=== PATIENT | male | born 1950 | race Caucasian/White ===

== ENCOUNTER 2021-09-02 09:03 | Emergency (ER) | payer OTHER ==
[~2021-09-02] VITALS: Ht 180.3 cm; Wt 83.9 kg
[2021-09-02] MEDS ORDERED: MOTRIN IB200 MG PO (09:27)
[2021-09-02] MEDS ORDERED: CINNAMON BARK1 GM MISC (09:27)
[2021-09-02] MEDS ORDERED: DAILY VALUE1 EACH PO (09:27)
[2021-09-02] MEDS ORDERED: ASPIRIN EC325 MG PO (09:28)
[2021-09-02] MEDS ORDERED: METFORMIN HCL500 MG PO (13:06)
== END 2021-09-02 13:21 | disposition home or self-care (01) ==
LOC: ED 09:03
DX: E11.9 Type 2 diabetes mellitus without complications (principal); I25.2 Old myocardial infarction; Z85.841 Personal history of malignant neoplasm of brain; Z79.899 Other long term (current) drug therapy; Z79.82 Long term (current) use of aspirin
CPT/HCPCS: 70470; 71260; 74177; 80053; 81001; 83690; 83735; 85025; 99284-25; J7030; Q9967

== ENCOUNTER 2021-09-17 08:12 | Emergency (ER) | payer MEDICARE ==
[~2021-09-17] VITALS: Ht 180.3 cm; Wt 75.8 kg
[~2021-09-17 08:12] MED LIST: ASPIRIN EC325 MG PO; CINNAMON BARK1 GM MISC; DAILY VALUE1 EACH PO; METFORMIN HCL500 MG PO; MOTRIN IB200 MG PO
--- OUTSIDE RECORDS SUMMARY | 2021-09-17 08:20 | XMS ---
PreManage Notification: MATI MENDEZ Security Rfp Writer Events No recent Security Events currently on file CRITERIA MET - [facility] - 2 Visits in 30 Days CARE PROVIDERS There are no care providers on record at this time. Sophia has no Care Guidelines for this patient. [facility] NOTE: Visits indicate total known visits. ED/C VISIT TRACKING (12 MO.) 09/17/2021 08:[address] 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
[2021-09-17] MEDS ORDERED: ATIVAN1 MG PO (08:47)
== END 2021-09-17 09:06 | disposition home or self-care (01) ==
LOC: ED 08:12
DX: F13.239 Sedative, hypnotic or anxiolytic dependence with withdrawal, unspecified (principal); Z76.0 Encounter for issue of repeat prescription; E11.9 Type 2 diabetes mellitus without complications; I25.2 Old myocardial infarction; Z85.841 Personal history of malignant neoplasm of brain; Z79.899 Other long term (current) drug therapy; Z79.84 Long term (current) use of oral hypoglycemic drugs; Z79.82 Long term (current) use of aspirin
CPT/HCPCS: 99281

== ENCOUNTER 2021-09-30 08:37 | Emergency (ER) | payer MEDICARE ==
[~2021-09-30] VITALS: Ht 180.3 cm; Wt 75.8 kg
[~2021-09-30 08:37] MED LIST changes: +ATIVAN1 MG PO
--- OUTSIDE RECORDS SUMMARY | 2021-09-30 08:46 | XMS ---
PreManage Notification: MATI MENDEZ Security Manager Military Events No recent Security Events currently on file CRITERIA MET - [facility] - 2 Visits in 30 Days CARE PROVIDERS There are no care providers on record at this time. Sophia has no Care Guidelines for this patient. [facility] MO[facility] T[facility] NOTE: Visits indicate total known visits. ED/C VISIT TRACKING (12 MO.) 09/30/2021 08:38 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 - group home (current) use of oral hypoglycemic drugs - Personal history of malignant neoplasm of brain - Other care home (current) drug therapy - Sedative, hypnotic or anxiolytic dependence with withdrawal, unspecified - Old myocardial infarction - Encounter for issue of repeat prescription 09/02/2021 09:04 [facility] [place] TYPE: Emergency COMPLAINT: - DIABETIC PROBLEM DIAGNOSES: - Hyperglycemia, unspecified - termite inspector (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
[2021-09-30] MEDS ORDERED: ATIVAN1 MG PO (09:14)
== END 2021-09-30 09:29 | disposition home or self-care (01) ==
LOC: ED 08:37
DX: F41.9 Anxiety disorder, unspecified (principal); E11.9 Type 2 diabetes mellitus without complications; I25.2 Old myocardial infarction; Z85.841 Personal history of malignant neoplasm of brain; Z79.899 Other long term (current) drug therapy; Z79.82 Long term (current) use of aspirin
CPT/HCPCS: 99283